=== PATIENT | female | born 1985 | race Caucasian/White ===

== ENCOUNTER 2017-04-30 19:02 | Emergency (ER) | payer OTHER ==
[~2017-04-30] VITALS: Ht 167.6 cm; Wt 72.6 kg
--- NOTE | 2017-04-30 19:37 | ED INFLUENZA/URI COMPLAINT ---
History of Present Illness General Chief Complaint: General Adult Stated Complaint: PT THINKS SHE DEHYDRATED SIB DR Source: patient, family Exam Limitations: no limitations Vital Signs & Intake/Output Vital Signs & Intake/Output Vital Signs Date Time Temp Pulse Resp B/P B/P Pulse O2 O2 Flow FiO2 Mean Ox Delivery Rate 05/01 0023 98.8 86 18 104/68 96 Room Air 05/01 0003 98.2 04/30 2153 100.4 100 20 122/81 97 Room Air 04/30 2100 99.8 04/30 2002 Room Air 04/30 1908 99.9 112 15 121/84 96 Room Air Room Air ED Intake and Output 05/01 0000 04/30 1200 Intake Total 1000 Output Total Balance 1000 Intake, IV 1000 Patient 160 lb Weight Weight Reported by Patient Measurement Method Allergies Coded Allergies: No Known Allergies (04/30/17) Triage Note: PT TO ED FOR ?DEHYDRATION, HAS HAD NAUSEA, DIARRHEA AND POOR PO INTAKE FOR LAST TWO DAYS. +BODY ACHES, FRONT OF HEAD TO TEMPLES, BACK OF NECK AND EARS HURT. PT NOT SURE IF RELATED TO TICK BITE APPROX 2 MONTHS AGO. DENIES CP, SOB, ABD PAIN. Triage Nurses Notes Reviewed? yes : No Patient currently breastfeeds: No HPI: 32 year old female presents to the ER for chief complaint of fever for the last 2 days. He was 101 yesterday assisted with throat pain, ear pain, neck pain. She was seen in urgent care clinic. She had a strep and flu test done that were negative and discharged at that time. Today fever was up to 103 at 5:00. She had been using Tylenol and fluids. Still complains of ear pain, throat pain. She denies of myalgias. She thinks there may have been some sick contacts of February last week in. Patient has no immunodeficiencies. No recent travel or antibiotics. Denies any rash. Denies any abdominal pain nausea vomiting. She's had diminished appetite today. (PRAKASH VEGAS,NICOLE) Reconcile Medications Ibuprofen 800 MG TABLET 1 TAB PO TID PRN PAIN Sertraline HCl 100 MG TABLET 1 TAB PO DAILY MENTAL HEALTH (Reported) (LÁZARO VEGAS,ELIEZER Onofre) Past History Travel History Traveled to [place] past 21 day No Medical History Any Pertinent Medical History? see below for history Neurological: NONE EENT: NONE Cardiovascular: NONE Respiratory: NONE Gastrointestinal: NONE Hepatic: NONE Renal: NONE Musculoskeletal: NONE Psychiatric: POST DEPRESSION Endocrine: NONE Surgical History Surgical History: non-contributory Psychosocial History What is your primary language Persian Tobacco Use: Current Not Daily ETOH Use: denies use Illicit Drug Use: denies illicit drug use Family History Hx Contributory? No (NICOLE RANDALL MD) Review of Systems Review of Systems Constitutional: Reports: fever, malaise, weakness. Denies: chills. EENTM: Reports: ear pain, throat pain. Respiratory: Denies: cough, short of breath, sputum production. Cardiovascular: Denies: chest pain. Hematologic/Endocrine: Denies: bruising, bleeding, polyuria, polydipsia. Immunologic/Allergic: Denies: splenectomy. (NICOLE RANDALL MD) Physical Exam Physical Exam General Appearance: well developed/nourished, alert, awake, anxious, mild distress, moderate distress Head: atraumatic, active bleeding Eyes: Bilateral: normal appearance. Ears, Nose, Throat: normal ENT inspection, moist mucous membrane, hearing grossly normal, Tympanic normal, pharynx normal Neck: normal inspection, supple, full range of motion, SUPPLE Respiratory: normal breath sounds, chest non-tender, no respiratory distress Cardiovascular: regular rate/rhythm Peripheral Pulses: 2+ radial (R), 2+ radial (L) Gastrointestinal: normal bowel sounds, soft, non-tender Neurologic/Psych: no motor/sensory deficits, awake, alert, oriented x 3 Skin: intact, normal color, warm/dry Core Measures Severe Sepsis Present: No Septic Shock Present: No (NICOLE RANDALL MD) Progress Differential Diagnosis: PNEUMONIA, STREP PHARYNGITIS, OTITIS, VIRAL SYNDROME Plan of Care: Orders Procedure Date/time Status THROAT CULTURE W/QUICK STREP 04/30 1942 Active Add-on Test (ER Only) 04/30 1941 Active MONOSPOT TEST 04/30 1923 Active LYME TITRE 04/30 1923 Active URINE 04/30 1911 Complete URINALYSIS 04/30 1911 Complete COMPREHENSIVE METABOLIC PANEL 04/30 1911 Complete CBC WITHOUT DIFFERENTIAL 04/30 1911 Complete Laboratory Tests 04/30/17 2155: Urine Color YEL, Urine Clarity CLEAR, Urine pH 6.5, Ur Specific [place] <= 1.005 , Urine Protein NEG, Urine Ketones NEG, Urine Nitrite NEG, Urine Bilirubin NEG, Urine Urobilinogen 0.2, Ur Leukocyte Esterase NEG, Ur Microscopic SEDIMENT EXAMINED, Urine RBC RARE, Ur Epithelial Cells FEW, Urine Bacteria MOD H, Urine Hemoglobin TRACE-INTACT, Urine Glucose NEG, Urine Test NEGATIVE 04/30/171922: Anion Gap 13, Estimated GFR > 60, BUN/Creatinine Ratio 11.7, Glucose 140 H, Calcium 8.8, Total Bilirubin 0.5, AST 34, ALT 43, Alkaline Phosphatase 82, Total Protein 6.7, Albumin 4.0, Globulin 2.7, Albumin/Globulin Ratio 1.5, CBC w Diff MAN DIFF ORDERED, RBC 4.20, MCV 91.8, MCH 30.8, RDW 13.2, MPV 8.6, Gran % 84.4 H, Lymphocytes % 10.8 L, Monocytes % 4.7, Eosinophils % 0, Basophils % 0.1, Absolute Granulocytes 6.5, Segmented Neutrophils 58, Band Neutrophils 21 H, Absolute Lymphocytes 0.8 L, Lymphocytes 16 L, Monocytes 5, Absolute Monocytes 0.4, Absolute Eosinophils 0, Absolute Basophils 0, Platelet Estimate ADEQUATE, Anisocytosis 1+, PUBS MCHC 33.6, Lyme Disease Antibody Pending, Infectious [place] Titer NEGATIVE 10:52 PM PATIENT FEELING BETTER AFTER IV TYLENOL. GOING FOR XRAY NOW. (PRAKASH VEGAS,NICOLE) Diagnostic Imaging: Viewed by Me: Radiology Read. Discussed w/RAD: Radiology Read. CXR Impression: PATIENT: PHU RUSSELL PRESENT AGE: 32 PATIENT ACCOUNT NO: [id number] : 84 LOCATION: [facility] ORDERING PHYSICIAN: NICOLE RANDALL MD SERVICE DATE: 04/30/17 EXAM TYPE: RAD - XRY-CHEST XRAY , PA AND LATERAL EXAMINATION: XR CHEST CLINICAL INFORMATION: Fever, bands, pneumonia COMPARISON: None TECHNIQUE: 2 views of the chest were obtained. FINDINGS: The lungs are clear with no focal consolidation. No evidence of pneumothorax, pulmonary edema, or pleural effusions. The cardiomediastinal silhouette is unremarkable. No acute osseous findings. IMPRESSION: No acute cardiopulmonary findings. DICTATED BY: BELINDA WHIET MD DATE/TIME DICTATED:2301 COST MANAGER:DELORES DATE/TIME TRANSCRIBED:04/30/172301 CONFIDENTIAL, DO NOT COPY WITHOUT APPROPRIATE AUTHORIZATION. <Electronically signed in Other Vendor System> SIGNED BY: BELINDA WHITE MD 04/30/17 2306 Initial ED EKG: none Hand-Off Endorsed To: LÁZARO VEGAS,ELIEZER Onofre Endorsed Time: 2252 Pending: Xray (NICOLE RANDALL MD) Departure Departure Disposition: STILL A PATIENT Condition: Stable Referrals: DOUG VEGAS,UMAIR Departure Forms: Customer Survey General Discharge Information (NICOLE RANDALL MD) Departure Clinical Impression Primary Impression: Viral syndrome Secondary Impressions: Fever Prescriptions: Current Visit Scripts Ibuprofen 1 TAB PO TID PRN PAIN #60 TAB Comments 05/01/17, 2:20am... pt feeling better and would like to go home... On exam, pt comfortable, no meningismus... wbc count normal. Pt safe for discharge with close follow up advised. (LÁZARO VEGAS,ELIEZER Onofre)
--- NOTE | 2017-04-30 19:44 | ED GENERAL ADULT ---
History of Present Illness General Chief Complaint: General Adult Stated Complaint: PT THINKS SHE DEHYDRATED SIB DR Vital Signs & Intake/Output Vital Signs & Intake/Output Vital Signs Date Time Temp Pulse Resp B/P B/P Pulse O2 O2 Flow FiO2 Mean Ox Delivery Rate 04/30 2002 Room Air 04/30 1908 99.9 112 15 121/84 96 Room Air Room Air Allergies Coded Allergies: No Known Allergies (04/30/17) Triage Note: PT TO ED FOR ?DEHYDRATION, HAS HAD NAUSEA, DIARRHEA AND POOR PO INTAKE FOR LAST TWO DAYS. +BODY ACHES, FRONT OF HEAD TO TEMPLES, BACK OF NECK AND EARS HURT. PT NOT SURE IF RELATED TO TICK BITE APPROX 2 MONTHS AGO. DENIES CP, SOB, ABD PAIN. : No Patient currently breastfeeds: No Past History Travel History Traveled to [place] past 21 day No Medical History Neurological: NONE EENT: NONE Cardiovascular: NONE Respiratory: NONE Gastrointestinal: NONE Hepatic: NONE Renal: NONE Musculoskeletal: NONE Psychiatric: POST DEPRESSION Endocrine: NONE Psychosocial History What is your primary language Hebrew Tobacco Use: Current Not Daily ETOH Use: denies use Illicit Drug Use: denies illicit drug use Progress Plan of Care: Orders Procedure Date/time Status THROAT CULTURE W/QUICK STREP 04/30 1942 Active Add-on Test (ER Only) 04/30 1941 Active MONOSPOT TEST 04/30 1923 Active LYME TITRE 04/30 1923 Active URINE 04/30 1911 Active URINALYSIS 04/30 1911 Active COMPREHENSIVE METABOLIC PANEL 04/30 1911 Complete CBC WITHOUT DIFFERENTIAL 04/30 1911 Active Current Medications Sig/Loc Start time Last Medication Dose Stop Time Status Admin Sodium Chloride 1,000 ML BOLUS ONE 04/30 1945 AC 04/30 (Normal Saline 0.9%) 04/30 Sodium Chloride 1,000 ML BOLUS ONE 04/30 1945 AC (Normal Saline 0.9%) 04/30 2044 Laboratory Tests 04/30/171922: Anion Gap 13, Estimated GFR > 60, BUN/Creatinine Ratio 11.7, Glucose 140 H, Calcium 8.8, Total Bilirubin 0.5, AST 34, ALT 43, Alkaline Phosphatase 82, Total Protein 6.7, Albumin 4.0, Globulin 2.7, Albumin/Globulin Ratio 1.5, CBC w Diff MAN DIFF ORDERED, RBC 4.20, MCV 91.8, MCH 30.8, RDW 13.2, MPV 8.6, Gran % 84.4 H, Lymphocytes % 10.8 L, Monocytes % 4.7, Eosinophils % 0, Basophils % 0.1, Absolute Granulocytes 6.5, Segmented Neutrophils Pending, Absolute Lymphocytes 0.8 L, Absolute Monocytes 0.4, Absolute Eosinophils 0, Absolute Basophils 0, PUBS MCHC 33.6, Lyme Disease Antibody Pending, Infectious [place] Titer Pending Departure Departure Condition: Stable Referrals: UMAIR CAMACHO MD Departure Forms: Customer Survey General Discharge Information
[2017-04-30 19:50] LABS: ABSOLUTE BASOPHIL COUNT 0 /CUMM (0.0-0.2); ABSOLUTE EOSINOPHIL COUNT 0 /CUMM (0.0-0.7); ABSOLUTE GRANULOCYTE CT 6.5 /CUMM (1.4-6.5); ABSOLUTE LYMPH COUNT 0.8 /CUMM (1.2-3.4); ABSOLUTE MONOCYTE COUNT 0.4 /CUMM (0.10-0.60); BASOPHIL % 0.1 % (0.0-2.0); EOSINOPHIL % 0 % (0-5); GRANULOCYTE % 84.4 % (42.2-75.2); HEMATOCRIT 38.5 % (37-47); MEAN CORPUSCULAR HGB 30.8 PG (27.0-31.0); MEAN CORPUSCULAR HGB CONC 33.6 G/DL (33.0-37.0); MEAN CORPUSCULAR VOLUME 91.8 FL (81.0-99.0); MEAN PLATELET VOLUME 8.6 FL (7.4-10.4); PLATELET COUNT 143 /CUMM (130-400); RBC DISTRIBUTION WIDTH 13.2 % (11.5-14.5); WHITE BLOOD CELL COUNT 7.8 /CUMM (4.8-10.8)
[2017-04-30] MEDS ORDERED: SERTRALINE HCL100 MG PO (20:58)
--- NOTE | 2017-04-30 23:06 | RADIOLOGY REPORT ---
EXAMINATION: XR CHEST CLINICAL INFORMATION: Fever, bands, pneumonia COMPARISON: None TECHNIQUE: 2 views of the chest were obtained. FINDINGS: The lungs are clear with no focal consolidation. No evidence of pneumothorax, pulmonary edema, or pleural effusions. The cardiomediastinal silhouette is unremarkable. No acute osseous findings. IMPRESSION: No acute cardiopulmonary findings.
[2017-05-01] MEDS ORDERED: IBUPROFEN800 M1 PO (02:19)
[2017-05-01 02:27] VITALS: BP 112/76
== END 2017-05-01 02:28 ==
LOC: ERH 19:02
PROVIDERS: Emergency Medicine
DX: B34.9 Viral infection, unspecified (principal); R50.9 Fever, unspecified
CPT/HCPCS: 86618; 81001; 81025; 96374; 96375; J0131; J1885